=== PATIENT | female | born 1990 | race Caucasian/White ===

== ENCOUNTER 2017-07-31 12:32 | Emergency (ER) | payer SELFPAY ==
[2017-07-31 13:26] VITALS: BP 131/84
--- NOTE | 2017-07-31 14:10 | UC ---
Ear Complaint HPI - History of Current Complaint Chief Complaint: UCEar Stated Complaint: LEFT EAR COMPLAINT Time Seen by Provider: 07/31/17 14:06 Hx Last Menstrual Period: 07/18/17 - Allergies/Home Medications Allergies/Adverse Reactions: Allergies Allergy/AdvReac Type Severity Reaction Status Date / Time bees Allergy Swelling Uncoded 07/31/17 13:27 PMH/Surg Hx/FS Hx/Imm Hx - Surgical History Surgical History: Yes Surgery Procedure, Year, and Place: [email or web address]. 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
== END 2017-07-31 14:17 | disposition home or self-care (01) ==
LOC: UCCORT 12:32
DX: H93.92 Unspecified disorder of left ear (principal); F17.200 Nicotine dependence, unspecified, uncomplicated
CPT/HCPCS: 84702; 99212; G0463

== ENCOUNTER 2017-08-03 11:05 | Emergency (ER) | payer SELFPAY ==
--- NOTE | 2017-08-03 12:23 | UC ---
Eye Complaint HPI - HPI Summary HPI Summary: 26 female presents to the urgent care c/o RT eye redness with eye discharge for the past 2 days. Pt states she woke up this morning with yellowish crusting eye discharge. Pt denies visual disturbance or eye pain. Pt also c/o of her clitoris is irritated with some vesicle that it phillips at touch and with urination. LMP: 07/14/2017 with regular menstrual cycle. She states she has HX of Herpes many years ago. she recently change partners, but she has been using condoms and OCP. She screened for STD's and her PAP at the beginning of the year and everything was negative. Pt denies fever. abdominal pain, pelvic pain.vaginal discharge or bleeding, SOB. BARONE, chest pain. Pt ws seen here 2 days ago for Otitis externa Rx Cipro Otic drops - History of Current Complaint Hx Obtained From: Patient Hx Last Menstrual Period: 07/18/17 ?: No Onset/Duration: Gradual Onset, Lasting Days - 2 days, Still Present Timing: Constant Severity Initially: Mild Severity Currently: Moderate Pain Intensity: 0 Pain Scale Used: 0-10 Numeric Location of Injury: Conjunctiva - RT eye redness, Other - vesicles in her clitoris Character: Dull Aggravating Factor(s): Nothing Alleviating Factor(s): Nothing Associated Signs And Symptoms: Positive: Drainage (Purulent). Negative: Fever, Swelling <Bernie Rodriguez - Last Filed: 08/04/17 10:28> <Nola Dias - Last Filed: 08/06/17 20:25> - History of Current Complaint Stated Complaint: RIGHT EYE COMPLAINT/PERSONAL - Allergies/Home Medications Allergies/Adverse Reactions: Allergies Allergy/AdvReac Type Severity Reaction Status Date / Time bees Allergy Swelling Uncoded 07/31/17 13:27 PMH/Surg Hx/FS Hx/Imm Hx Previously Healthy: Yes - Pt denies PMHX - Surgical History Surgical History: Yes Surgery Procedure, Year, and Place: [email or web address]. 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 Smoking Status (MU): Light Every Day Tobacco Smoker <Bernie Rodriguez - Last Filed: 08/04/17 10:28> Review of Systems Constitutional: Negative Skin: Other - vesicles in her clitoris Eyes: Eye Redness - RT eye red with yellowish discharge ENT: Negative Respiratory: Negative Cardiovascular: Negative Gastrointestinal: Negative Genitourinary: Dysuria - burning on urination Motor: Negative Neurovascular: Negative Musculoskeletal: Negative Neurological: Negative Psychological: Negative Is Patient Immunocompromised?: No All Other Systems Reviewed And Are Negative: Yes <Bernie Rodriguez - Last Filed: 08/04/17 10:28> Physical Exam Triage Information Reviewed: Yes Appearance: Well-Appearing, No Pain Distress, Well-Nourished, Obese Vital Signs: Not electricity at the moment. Vital signs were reviewed on paper and done by nurse Vital Signs Reviewed: Yes Eyes: Positive: Conjunctiva Inflamed - B/L PERRLA, EOMI, fundi grossly normal, RT conjunctiva injected with yellowish eye discharge. No tenderness on palpation, RT eyelid with mild swelling. LF eye conjunctiva clear and WNL ENT: Positive: Normal ENT inspection, Hearing grossly normal, Pharynx normal, TMs normal - LF external ear canal with mild erythema and yellowish ear discharge Neck exam: Normal Neck: Positive: Supple, Nontender, No Lymphadenopathy Respiratory Exam: Normal Respiratory: Positive: Chest non-tender, Lungs clear, Normal breath sounds Cardiovascular Exam: Normal Cardiovascular: Positive: RRR, No Murmur, Pulses Normal, Brisk Capillary Refill Abdominal Exam: Normal Abdomen Description: Positive: Nontender, No Organomegaly, Soft, Other: - External genitalia: about 5 tender vesicle with discrete clear discharge around clitoris and LF labia majora. Sample was taken with a swab and sent for culture to r/o Herpex.. Negative: CVA Tenderness (R), CVA Tenderness (L) Bowel Sounds: Positive: Present Musculoskeletal Exam: Normal Musculoskeletal: Positive: Strength Intact, ROM Intact, No Edema Neurological Exam: Normal Psychological Exam: Normal Skin Exam: Normal <Bernie Rodriguez - Last Filed: 08/04/17 10:28> Eye Complaint Course/Dx - Course Course Of Treatment: 26 female presents to the urgent care c/o RT eye redness with eye discharge for the past 2 days. Pt states she woke up this morning with yellowish crusting eye discharge. Pt denies visual disturbance or eye pain. Pt also c/o of her clitoris is irritated with some vesicle that it phillips at touch and with urination. LMP: 07/14/2017 with regular menstrual cycle. She states she has HX of Herpes many years ago. she recently change partners, but she has been using condoms and OCP. She screened for STD's and her PAP at the beginning of the year and everything was negative. Pt denies fever. abdominal pain, pelvic pain,vaginal discahrge or bleeding, SOB. BARONE, chest pain.Pt ws seen here 2 days ago for Otitis externa Rx Cipro Otic drops HX obtained. test: negative, UA: +leukoesteraces, trace of blood. Pt dneis vaginal discharge. Pt will be Tx for UTI. Rx Macrobid PO and Pyridium to alleviate dysuria. Pt with Bacterial conjunctivitis on examination. Pt Rx Ciprofloxacin opthalmin drops.Strongly encourage hand washing. Pt with External genitalia with 5 tender vesicles with discrete clear discharge around clitoris and LF labia majora. Sample was taken with a swab and sent to lab for culture to r/o Herpex. Pt with PMHX of Herpes. Pt RX Valtrex PO. Pt strongly advised to f/u with her PCP for further blood work and management since she has FMHX of DM type II. I discussed all the findings and test results with the patient. Patient was instructed to return to the urgent care immediately if any of the symptoms return or worsens. Plan of care was discussed with the patient and understands and agrees. All questions were answered at patient satisfaction. There were no further complaints or concerns. Pt left the clinic ambulating - Differential Dx/Diagnosis Differential Diagnosis/HQI/PQRI: Conjunctivitis, Corneal Abrasion, Keratitis, Orbital Cellulitis, Uveitis, Other - Bacterial Vaginosis, Candidiasis, Genital Herpes Provider Diagnoses: 1- Acute bacterial Conjunctivitis. 2-Genital rash. 3-UTI <Bernie Rodriguez - Last Filed: 08/04/17 10:28> Discharge <Bernie Rodriguez - Last Filed: 08/04/17 10:28> <Nola Dias - Last Filed: 08/06/17 20:25> - Discharge Plan Condition: Stable Disposition: HOME Prescriptions: Ciprofloxacin 0.3% OPTH.EARNEST* [Cipro 0.3% Opth*] 1 drop RIGHT EYE Q4H #1 btl Ibuprofen TAB* [Motrin TAB* 800 MG] 800 mg PO Q6H #30 tab Nitrofurantoin Monohyd Macro [Macrobid] 100 mg PO BID #10 cap Phenazopyridine TAB* [Pyridium 100 mg TAB*] 100 mg PO TID #6 tab ValACYclovir (*) [Valtrex 1 GM(*)] 1 gm PO BID #14 tab Patient Education Materials: Genital Herpes Simplex (ED), Urinary Tract Infection in Women (ED), Conjunctivitis (ED) Referrals: Non Staff,Doctor [Primary Care Provider] - [facility] [Outside] - If Needed Additional Instructions: 1-Please apply ophthalmic drops as instructed and finish the full course of treatment to avoid recurrent infection. Encourage hand washing to avoid spreading. 2- Take Valtrex PO as directed to alleviate symptoms. Samples were sent to the Lab, if anything abnormal you will be notify of any abnormality. 3- Please take Macrobid 100mg PO x 7 days. Pyridium 100mg PO TID x 2 days to alleviate urinary symptoms. Increase increase fluid intake. 4-If you do not improve or if symptoms worsen please f/u with PCP for further evaluation and treatment Attestation Statement User Type: Provider - I was available for consult. This patient was seen by the AMARJIT. The patient was not presented to, seen by, or examined by me. -Vikram <Nola Dias - Last Filed: 08/06/17 20:25>
[2017-08-05 19:20] LABS: HS/VZ Source PERINEUM; Varicella Zoster Result Negative (Negative); Varicella Zoster Source PERINEUM
--- NOTE | 2017-08-06 07:48 | UC ---
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
== END 2017-08-03 13:01 | disposition home or self-care (01) ==
LOC: UCCORT 11:05
DX: H10.31 Unspecified acute conjunctivitis, right eye (principal); N39.0 Urinary tract infection, site not specified; R21 Rash and other nonspecific skin eruption; F12.90 Cannabis use, unspecified, uncomplicated; F17.200 Nicotine dependence, unspecified, uncomplicated; Z91.030 Bee allergy status
CPT/HCPCS: 81003; 84702; 87070; 87077; 87086; 87186; 87205; 87529; 87798; 99212; G0463